=== PATIENT | female | born 1985 | race Caucasian/White ===

== ENCOUNTER 2021-01-06 13:39 | Emergency (ER) | payer MEDICARE, MEDICAID ==
[~2021-01-06] VITALS: Ht 161.3 cm; Wt 64.0 kg
[2021-01-06 13:53] VITALS: BP 129/96
[2021-01-06] MEDS ORDERED: HYDROcodone/acetaminophen 5mg/325mg tablet PO ONE (15:30)
[2021-01-06] MEDS ORDERED: gabapentin 300mg capsule PO ONE (15:30)
[2021-01-06] MEDS ORDERED: GABA300C PO (16:38)
== END 2021-01-06 16:54 | disposition home or self-care (01) ==
LOC: ER 13:40
DX: M25.532 Pain in left wrist (principal); Z88.8 Allergy status to other drugs, medicaments and biological substances; Z79.899 Other long term (current) drug therapy
CPT/HCPCS: 29125; 73110; 99283